=== PATIENT | female | born 1985 | race Caucasian/White ===

== ENCOUNTER 2017-11-20 16:40 | Emergency (ER) | payer MEDICAID, OTHER ==
[2017-11-20 17:01] VITALS: BP 125/83; PULSE 71; RESP 18; TEMP 97.7; O2SAT 99
[2017-11-20] MEDS ORDERED: Sodium Chloride 0.9% 1,000 ML IV STA (18:10)
--- NOTE | 2017-11-20 18:14 | ED PDOC ---
HPI: Abdomen Time Seen by Provider: 11/20/17 17:00 Chief Complaint (Nursing): Abdominal Pain Chief Complaint (Provider): Abdominal pain History Per: Patient History/Exam Limitations: no limitations Onset/Duration Of Symptoms: Hrs (this morning) Current Symptoms Are (Timing): Still Present Location Of Pain/Discomfort: Other (left sided) Quality Of Discomfort: "Pain" Associated Symptoms: Back Pain. denies: Fever, Chills, Nausea, Vomiting, Diarrhea, Urinary Symptoms (hematuria) Additional Complaint(s): Caty Mcnally is a 31 year old female, with no significant past medical history, who presents to the emergency department complaining of left sided abdominal pain that radiates to the back onset since this morning. Patient took ibuprofen today with no relief of symptoms. Last menstrual period was at the end of October. She denies any fever, chills, nausea, vomiting, diarrhea or hematuria. No further medical complaints. PMD: None provided. Last Menstral Period: End of October Past Medical History Reviewed: Historical Data, Nursing Documentation, Vital Signs Vital Signs: Last Vital Signs Temp 97.7 F 11/20/17 16:59 Pulse 71 11/20/17 16:59 Resp 18 11/20/17 16:59 BP 125/83 11/20/17 16:59 Pulse Ox 99 11/22/17 20:50 - Medical History PMH: No Chronic Diseases - Surgical History Surgical History: - Family History Family History: States: Unknown Family Hx - Social History Current smoker - smoking cessation education provided: Yes (light smoker <10 cigarettes daily) - Home Medications Home Medications: Ambulatory Orders Medication Instructions Recorded Vit#96/Ferrous Fum/FA 1 tab PO DAILY 02/05/15 [] Naproxen 1 tab PO BID PRN #14 tab 07/04/16 oxyCODONE/Acetaminophen [Percocet 1 ea PO Q6 PRN #15 tab 07/04/16 5/325 mg Tab] Naproxen [Naprosyn] 500 mg PO BID #30 tablet 11/21/17 - Allergies Allergies/Adverse Reactions: Allergies Allergy/AdvReac Type Severity Reaction Status Date / Time No Known Allergies Allergy Verified 11/20/17 16:59 Review of Systems ROS Statement: Except As Marked, All Systems Reviewed And Found Negative Constitutional: Negative for: Fever, Chills Gastrointestinal: Positive for: Abdominal Pain (left sided). Negative for: Nausea, Vomiting, Diarrhea Genitourinary Female: Negative for: Hematuria Musculoskeletal: Positive for: Back Pain Physical Exam - Reviewed Nursing Documentation Reviewed: Yes Vital Signs Reviewed: Yes - Physical Exam Appears: Positive for: Non-toxic Head Exam: Positive for: ATRAUMATIC, NORMAL INSPECTION, NORMOCEPHALIC Skin: Positive for: Normal Color, Warm, Dry Eye Exam: Positive for: Normal appearance, EOMI, PERRL Neck: Positive for: Painless ROM, Supple Cardiovascular/Chest: Positive for: Regular Rate, Rhythm. Negative for: Murmur Respiratory: Positive for: Normal Breath Sounds (clear b/l). Negative for: Respiratory Distress Gastrointestinal/Abdominal: Positive for: Tenderness (LLQ) Back: Positive for: Normal Inspection. Negative for: L CVA Tenderness, R CVA Tenderness, Vertebral Tenderness Extremity: Positive for: Normal ROM. Negative for: Tenderness, Deformity, Swelling Neurologic/Psych: Positive for: Alert, Oriented. Negative for: Motor/Sensory Deficits - Laboratory Results Result Diagrams: 11/20/17 20:50 11/20/17 19:22 - ECG O2 Sat by Pulse Oximetry: 99 (RA) Pulse Ox Interpretation: Normal Medical Decision Making Medical Decision Making: Initial Impression: Abdominal pain, rule out UTI rule out intraabdomianl pathology such as diverticulitis Initial Plan: --Abd & Pelvis w/o PO or IV Contrast [CT] --Beta-HCG, Quantitative --CMP --CBC w/ differential --Toradol 30 mg IV --Sodium Chloride 1,000 ml IV 999 mls/hr --Reevaluation 19:00 --Patient will be signed out to Dr. Coburn, pending CT. Scribe Attestation: Documented by Santos Pemberton, acting as a scribe for Sadia Cho MD Provider Scribe Attestation: All medical record entries made by the Scribe were at my direction and personally dictated by me. I have reviewed the chart and agree that the record accurately reflects my personal performance of the history, physical exam, medical decision making, and the department course for this patient. I have also personally directed, reviewed, and agree with the discharge instructions and disposition. Disposition - Clinical Impression Clinical Impression: Ovarian cyst - Patient ED Disposition Is Patient to be Admitted: Transfer of Care - Disposition [facility] Disposition: Transfer of Care Disposition Time: 17:00 Condition: STABLE Prescriptions: Naproxen [Naprosyn] 500 mg PO BID #30 tablet Instructions: Ovarian Cysts Forms: [employer] (Sinhala) Patient Signed Over To: Inder Coburn
--- NOTE | 2017-11-20 19:29 | ED PDOC ---
- Laboratory Results Result Diagrams: 11/20/17 20:50 11/20/17 19:22 - ECG O2 Sat by Pulse Oximetry: 99 (RA) Medical Decision Making Medical Decision Makin:00 --Patient was endorsed to me by Dr. Cho, pending CT and lab work. 19:50 Abdomen/Pelvis CT FINDINGS: Lower thorax: Heart size is normal. Lung bases are clear ABDOMEN: Liver: unremarkable Gallbladder and bile ducts: unremarkable Pancreas: unremarkable Spleen: unremarkable Adrenals: unremarkable Kidneys and ureters: unremarkable Stomach and bowel: Stomach is partially distended. Rotation is normal. There is no small bowel obstruction. Ileocecal region is unremarkable. Appendix and terminal ileum are unremarkable. Colon is incompletely distended which limits evaluation.There is diverticulosis. Appendix: See stomach and bowel PELVIS: Bladder: unremarkable Reproductive: Uterus and left adnexal structures are unremarkable. There is a 3 cm right adnexal/ovarian cyst. ABDOMEN and PELVIS: Intraperitoneal space: There is a small amount of free fluid in the pelvis.There is no free air. Bones/joints: There are no acute osseous abnormalities. Soft tissues: unremarkable Vasculature: Vascular structures are unremarkable. Lymph nodes: There is shotty adenopathy. IMPRESSION: No renal or ureteral stones or hydronephrosis; limited evaluation of renal parenchyma due to lack of intravenous contrast; no acute solid visceral or bowel abnormality; 3 cm right ovarian/adnexal cyst; small amount of free fluid in the pelvis, physiologic versus recent cyst rupture 2200 Pt. feeling better, results given, told to f/u w/ [employer] MACHINE OPERATOR. Pt. well appearing upon discharge, vitals improved. ADvised to f/u w/ HO[employer] MACHINE OPERATOR in 1- 2 days, return precautions discussed. Disposition - Clinical Impression Clinical Impression: Ovarian cyst - POA Present On Arrival: None - Disposition [facility] [[facility]] Disposition: Routine/Home Disposition Time: 20:40 Condition: STABLE Prescriptions: Naproxen [Naprosyn] 500 mg PO BID #30 tablet Instructions: Ovarian Cysts Forms: [employer] (Slovenian)
--- NOTE | 2017-11-20 19:50 | CT ---
EXAM: CT Abdomen and Pelvis Without Intravenous Contrast EXAM DATE/TIME: 11/20/2017 6:10 PM CLINICAL HISTORY: 31 years old, female; Pain; Abdominal pain; Localized; Left lower quadrant (llq); Prior surgery; Surgery date: 6+ months; Surgery type: ; Additional info: Left flank pain. TECHNIQUE: Axial computed tomography images of the abdomen and pelvis without intravenous contrast. All CT scans at this facility use one or more dose reduction techniques, viz.: automated exposure control; ma/kV adjustment per patient size (including targeted exams where dose is matched to indication; i.e. head); or iterative reconstruction technique. Coronal and sagittal reformatted images were created and reviewed. COMPARISON: There are no prior studies for comparison. FINDINGS: Lower thorax: Heart size is normal. Lung bases are clear ABDOMEN: Liver: unremarkable Gallbladder and bile ducts: unremarkable Pancreas: unremarkable Spleen: unremarkable Adrenals: unremarkable Kidneys and ureters: unremarkable Stomach and bowel: Stomach is partially distended. Rotation is normal. There is no small bowel obstruction. Ileocecal region is unremarkable. Appendix and terminal ileum are unremarkable. Colon is incompletely distended which limits evaluation.There is diverticulosis. Appendix: See stomach and bowel PELVIS: Bladder: unremarkable Reproductive: Uterus and left adnexal structures are unremarkable. There is a 3 cm right adnexal/ovarian cyst. ABDOMEN and PELVIS: Intraperitoneal space: There is a small amount of free fluid in the pelvis.There is no free air. Bones/joints: There are no acute osseous abnormalities. Soft tissues: unremarkable Vasculature: Vascular structures are unremarkable. Lymph nodes: There is shotty adenopathy. IMPRESSION: No renal or ureteral stones or hydronephrosis; limited evaluation of renal parenchyma due to lack of intravenous contrast; no acute solid visceral or bowel abnormality; 3 cm right ovarian/adnexal cyst; small amount of free fluid in the pelvis, physiologic versus recent cyst rupture
[2017-11-20] MEDS ORDERED: Morphine 4 MG/ML VIAL IVP STA (20:14)
[2017-11-20 20:31] LABS: ALB/GLOB RATIO 1.2 (1.0-2.1); ALBUMIN 4.2 g/dL (3.5-5.0); ALT/SGPT 29 U/L (9-52); AST/SGOT 28 U/L (14-36); BLOOD UREA NITROGEN 14 mg/dl (7-17); CALCIUM 8.9 mg/dL (8.4-10.2); GFR AFRICAN-AMERICAN > 60; GFR NON-AFRICAN AMERICAN > 60
[2017-11-20] MEDS ORDERED: Morphine 4 MG/ML VIAL ONE (20:35)
[2017-11-20 20:57] LABS: BASO # 0.1 K/uL (0.0-0.2); BASO % 0.6 % (0.0-2.0); EOS % 0.1 % (0.0-4.0); HEMOGLOBIN 14.1 g/dL (12.0-16.0); LYMPH # 1.4 K/uL (1.0-4.3); LYMPH % 15.1 % (20.0-40.0); MEAN CELL VOLUME 93.2 fl (81.0-99.0); MEAN CORPUSCULAR HEMOGLOBIN 31.6 pg (27.0-31.0); MEAN CORPUSCULAR HGB CONC 33.9 g/dL (33.0-37.0); MEAN PLATELET VOLUME 7.2 fl (7.2-11.7); MONO # 0.5 K/uL (0.0-0.8); MONO % 5.2 % (0.0-10.0); NEUT # 7.3 K/uL (1.8-7.0); NRBC % 0.1 % (0.0-0.0); RBC 4.47 Mil/uL (3.80-5.20); RED CELL DISTRIBUTION WIDTH 12.5 % (11.5-14.5); WHITE BLOOD COUNT 9.3 K/uL (4.8-10.8)
--- NOTE | 2017-11-21 13:37 | US ---
HISTORY: LLQ/pelvic LMP 10/31/2017 COMPARISON: None available. TECHNIQUE: Transvaginal FINDINGS: UTERUS: Measures 8.4 x 5.5 x 3.4 cm. Normal in size. The uterus is retroverted to slightly retroflexed. No fibroid or other mass lesion seen. ENDOMETRIUM: Measures 7 mm in diameter. Unremarkable. CERVIX: No cervical abnormality identified. RIGHT OVARY: Measures 3.3 x 2.6 x 2 .6 cm. No solid mass. Normal flow. 2.3 x 1.6 x 1.5 cm inferred corpus luteal cyst crenated LEFT OVARY: Measures 2.4 x 2.2 x 1.5 cm cm. No solid mass. Normal flow. FREE FLUID: No significant free fluid noted. OTHER FINDINGS: None. IMPRESSION: Right the corpus luteal cyst -. Otherwise unremarkable
== END 2017-11-21 00:41 | disposition home or self-care (01) ==
LOC: H.ER 16:40
DX: M54.9 Dorsalgia, unspecified (principal); N83.209 Unspecified ovarian cyst, unspecified side; F17.210 Nicotine dependence, cigarettes, uncomplicated; Z98.890 Other specified postprocedural states
CPT/HCPCS: 74176; 76830; 80053; 81025; 84702; 85025; 96374; 96375; 96376; 99283; J1885; J2270; J2405; J7040

== ENCOUNTER 2018-03-09 04:54 | Emergency (ER) | payer OTHER ==
[2018-03-09 05:18] VITALS: RESP 16; TEMP 97.9
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
[2018-03-09 07:17] VITALS: BP 120/72; PULSE 89
[2018-03-09 20:28] VITALS: O2SAT 97
== END 2018-03-09 07:00 | disposition home or self-care (01) ==
LOC: H.ER 04:54
DX: S01.419A Laceration without foreign body of unspecified cheek and temporomandibular area, initial encounter (principal); S01.512A Laceration without foreign body of oral cavity, initial encounter; Y04.2XXA Assault by strike against or bumped into by another person, initial encounter

== ENCOUNTER 2019-01-28 18:10 | Emergency (ER) | payer OTHER ==
[2019-01-28 18:41] VITALS: RESP 18
--- NOTE | 2019-01-28 20:45 | ED PDOC ---
HPI: Abdomen Time Seen by Provider: 01/28/19 18:45 Chief Complaint (Nursing): Abdominal Pain Chief Complaint (Provider): abdominal pain History Per: Patient History/Exam Limitations: no limitations Onset/Duration Of Symptoms: Days (4) Current Symptoms Are (Timing): Still Present Location Of Pain/Discomfort: LLQ (radiating down to leg) Quality Of Discomfort: Aching Associated Symptoms: Urinary Symptoms. denies: Fever, Chills, Nausea, Vomiting, Diarrhea Exacerbating Factors: Movement Alleviating Factors: None Past Medical History Reviewed: Historical Data, Nursing Documentation, Vital Signs Vital Signs: Last Vital Signs Temp 98.4 F 01/28/19 18:38 Pulse 91 H 01/28/19 18:38 Resp 18 01/28/19 18:38 BP 131/88 01/28/19 18:38 Pulse Ox 100 01/28/19 18:38 Primary Care Provider: Tejas Dominguez - Medical History PMH: No Chronic Diseases - Surgical History Surgical History: - Family History Family History: States: Unknown Family Hx - Social History Current smoker - smoking cessation education provided: No - Immunization History Hx Tetanus Toxoid Vaccination: No Hx Influenza Vaccination: No Hx Pneumococcal Vaccination: No - Home Medications Home Medications: Ambulatory Orders Medication Instructions Recorded Vits96/Iron Fum/Folic 1 tab PO DAILY 02/05/15 [] Naproxen 1 tab PO BID PRN #14 tab 07/04/16 oxyCODONE/Acetaminophen [Percocet 1 ea PO Q6 PRN #15 tab 07/04/16 5/325 mg Tab] Naproxen [Naprosyn] 500 mg PO BID #30 tablet 11/21/17 Chlorhexidine 0.12% [Peridex] 10 ml PO TID #1 bottle 03/09/18 Docusate Sodium [Dulcolax Stool 100 mg PO DAILY #12 capsule 01/29/19 Softener] Ibuprofen [Motrin Tab] 600 mg PO Q6 #30 tab 01/29/19 - Allergies Allergies/Adverse Reactions: Allergies Allergy/AdvReac Type Severity Reaction Status Date / Time No Known Allergies Allergy Verified 01/28/19 18:37 Review of Systems ROS Statement: Except As Marked, All Systems Reviewed And Found Negative (and as per HPI) Gastrointestinal: Positive for: Abdominal Pain. Negative for: Nausea, Melena, Hematochezia, Hematemesis Genitourinary Female: Positive for: Dysuria, Vaginal Discharge (1 month white cheesy). Negative for: Frequency Physical Exam - Reviewed Nursing Documentation Reviewed: Yes Vital Signs Reviewed: Yes - Physical Exam Appears: Positive for: Non-toxic, No Acute Distress Head Exam: Positive for: ATRAUMATIC, NORMOCEPHALIC Skin: Positive for: Warm, Dry Eye Exam: Positive for: EOMI, PERRL ENT: Negative for: Pharyngeal Erythema, Tonsillar Exudate Neck: Positive for: Painless ROM, Supple Cardiovascular/Chest: Positive for: Regular Rate, Rhythm. Negative for: Murmur Respiratory: Positive for: Normal Breath Sounds. Negative for: Respiratory Distress Gastrointestinal/Abdominal: Positive for: Soft, Tenderness (LLQ/pelvic). Negative for: Mass, Distended, Guarding, Rebound Pelvic Exam: Positive for: External Exam Normal, Speculum Exam Normal, No Cerv. Motion Tender. Negative for: Discharge Back: Positive for: Normal Inspection. Negative for: L CVA Tenderness, R CVA Tenderness Extremity: Positive for: Normal ROM. Negative for: Deformity Lymphatic: Negative for: Adenopathy Neurological/Psych: Positive for: Awake, Alert. Negative for: Motor/Sensory Deficits - Laboratory Results Result Diagrams: 01/28/19 20:46 01/28/19 20:46 - ECG O2 Sat by Pulse Oximetry: 100 Medical Decision Making Medical Decision Makin:36 Pelvic US Findings Uterus Measures 12.3 x 3.3 x 4.4 cm. Normal in size and appearance. No fibroid or other mass lesion seen. Endometrium Measures 6 mm in diameter. Unremarkable. Right ovary Measures 4.6 x 1.9 x 2.4 cm. No solid mass. Normal flow. Cyst measures 1.7 x 1.8 x 1.7 cm. Left ovary Measures 2.5 x 2.4 x 3.1 cm. No solid mass. Normal flow. Free fluid Trace free fluid noted. Other Findings None. Impression 1. Trace free fluid in the cul-de-sac. 2. Right ovarian cyst. 23:[address] Coburn pending CT, re-evaluation and final disposition. Disposition - Clinical Impression Clinical Impression: Ovarian cyst, Diverticulosis, Constipation - Patient ED Disposition Is Patient to be Admitted: Transfer of Care - Disposition Referrals: Tejas Dominguez MD [Primary Care Provider] - Disposition: Transfer of Care Disposition Time: 23:00 Condition: STABLE Prescriptions: Docusate Sodium [Dulcolax Stool Softener] 100 mg PO DAILY #12 capsule Ibuprofen [Motrin Tab] 600 mg PO Q6 #30 tab Instructions: Ovarian Cysts, Constipation in Adults, Diverticulosis Forms: [employer] (Slovenian) Patient Signed Over To: Inder Coburn
[2019-01-28 20:50] LABS: BASO # 0.1 K/uL (0.0-0.2); EOS # 0.1 K/uL (0.0-0.7); EOS % 1.8 % (0.0-4.0); HEMOGLOBIN 13.1 g/dL (12.0-16.0); LYMPH # 2.7 K/uL (1.0-4.3); LYMPH % 34.1 % (20.0-40.0); MEAN CELL VOLUME 91.5 fl (81.0-99.0); MEAN CORPUSCULAR HGB CONC 33.9 g/dL (33.0-37.0); MEAN PLATELET VOLUME 7.3 fl (7.2-11.7); MONO # 0.5 K/uL (0.0-0.8); MONO % 5.9 % (0.0-10.0); NEUT # 4.4 K/uL (1.8-7.0); NEUT % 57.2 % (50.0-75.0); NRBC % 0.1 % (0.0-0.0); RBC 4.22 Mil/uL (3.80-5.20); RED CELL DISTRIBUTION WIDTH 13.1 % (11.5-14.5); WHITE BLOOD COUNT 7.8 K/uL (4.8-10.8)
[2019-01-28 21:00] LABS: ALB/GLOB RATIO 1.3 (1.0-2.1); ALBUMIN 4.3 g/dL (3.5-5.0); ALT/SGPT 32 U/L (9-52); AST/SGOT 30 U/L (14-36); BLOOD UREA NITROGEN 9 mg/dl (7-17); GFR NON-AFRICAN AMERICAN > 60
[2019-01-28] MEDS ORDERED: Iohexol 240 (50 ml) PO STA (21:53)
[2019-01-28] MEDS ORDERED: Iohexol 240 (50 ml) ONE (22:21)
--- NOTE | 2019-01-28 23:28 | ED PDOC ---
- Laboratory Results Result Diagrams: 01/28/19 20:46 01/28/19 20:46 Lab Results: Total Bilirubin 0.3 mg/dl (0.2-1.3) 01/28/19 20:46 AST 30 U/L (14-36) 01/28/19 20:46 ALT 32 U/L (9-52) 01/28/19 20:46 Alkaline Phosphatase 79 U/L (38-126) 01/28/19 20:46 Total Protein 7.5 G/DL (6.3-8.2) 01/28/19 20:46 Albumin 4.3 g/dL (3.5-5.0) 01/28/19 20:46 Globulin 3.3 gm/dL (2.2-3.9) 01/28/19 20:46 Albumin/Globulin Ratio 1.3 (1.0-2.1) 01/28/19 20:46 - ECG O2 Sat by Pulse Oximetry: 100 (RA) Pulse Ox Interpretation: Normal Medical Decision Making Medical Decision Makin:00 Patient endorsed to this provider by Dr. Richey pending CT, re-evaluation and final disposition. 01:03 CT FINDINGS: LUNG BASES: The lung bases appear clear. No pleural effusions are seen. LIVER: There is mild diffuse fatty infiltration of liver. GALLBLADDER AND BILE DUCTS: Gallbladder is decompressed. PANCREAS: Unremarkable. SPLEEN: Unremarkable. ADRENAL GLANDS: Unremarkable. KIDNEYS, URETERS, AND BLADDER: The kidneys appear within normal limits. There is no hydronephrosis or hydroureter. No urinary calculi are seen. STOMACH AND BOWEL: Mild sigmoid diverticulosis without convincing evidence for acute diverticulitis. There is constipation in the colon. APPENDIX: Normal appendix. PERITONEUM: No free fluid. No free air. LYMPH NODES: No lymphadenopathy is evident. REPRODUCTIVE: 2.3 cm right ovarian cyst. Questionable 3.2 cm solid left adnexal lesion, although this was not identified on the ultrasound from earlier the same day. This finding was not appreciable on the 2018 CT. Consider correlation with pelvic MRI or short-term imaging in approximately 2 months. VASCULATURE: No evidence of abdominal aortic aneurysm. BONES: No aggressive appearing osseous lesion. No acute osseous pathology evident. IMPRESSION: 1. There is mild diffuse fatty infiltration of liver. 2. 2.3 cm right ovarian cyst. This correlate with the findings on ultrasound from earlier the same day. 3. Questionable 3.2 cm solid left adnexal lesion, although this was not identified on the ultrasound from earlier the same day. This finding was not appreciable on the 2018 CT. Consider correlation with pelvic MRI or short-term imaging in approximately 2 months. 4. Mild sigmoid diverticulosis without convincing evidence for acute diverticulitis. 5. There is constipation in the colon. 01:13 Patient reports improvement of symptoms. She was advised that she should discuss with Dr. Dominguez CT findings once final reading is available. Patient appears well upon discharge. Scribe Attestation: Documented by Aida Antoine, acting as a scribe Carly Coburn MD Provider Scribe Attestation: All medical record entries made by the Scribe were at my direction and personally dictated by me. I have reviewed the chart and agree that the record accurately reflects my personal performance of the history, physical exam, medical decision making, and the department course for this patient. I have also personally directed, reviewed, and agree with the discharge instructions and disposition. Disposition - Clinical Impression Clinical Impression: Ovarian cyst, Diverticulosis, Constipation - POA Present On Arrival: None - Disposition Referrals: Tejas Dominguez MD [Primary Care Provider] - Disposition: Routine/Home Disposition Time: :13 Condition: IMPROVED Prescriptions: Docusate Sodium [Dulcolax Stool Softener] 100 mg PO DAILY #12 capsule Ibuprofen [Motrin Tab] 600 mg PO Q6 #30 tab Instructions: Ovarian Cysts, Constipation in Adults, Diverticulosis Forms: [employer] (Citizen Of [place])
[2019-01-28] MEDS ORDERED: Iohexol 300 100 ML IJ ONE (23:51)
[2019-01-28] MEDS ORDERED: Sodium Chloride 0.9% 50 ML IV ONE (23:51)
[2019-01-29] MEDS ORDERED: Fluconazole 150 MG TAB PO STA (01:27)
[2019-01-29] MEDS ORDERED: Fluconazole 150 MG TAB PO ONE (01:31)
[2019-01-29 01:44] VITALS: BP 133/79; PULSE 77; TEMP 98.6
[2019-01-29 03:28] VITALS: O2SAT 100
--- NOTE | 2019-01-29 11:30 | CT ---
Date of service: 01/28/2019 PROCEDURE: CT Abdomen and Pelvis with contrast HISTORY: LLQ pain COMPARISON: 11/20/2017. TECHNIQUE: CT scan of the abdomen and pelvis was performed after administration of intravenous contrast. Oral contrast was administered. Coronal and sagittal reformatted images were obtained. Contrast dose: 90 mL Omnipaque 300 Radiation dose: Total exam DLP = 582.95 mGy-cm. This CT exam was performed using one or more of the following dose reduction techniques: Automated exposure control, adjustment of the mA and/or kV according to patient size, and/or use of iterative reconstruction technique. FINDINGS: LOWER THORAX: The visualized lungs are clear. LIVER: Normal in size with homogeneous enhancement. Diffuse fatty liver. No gross lesion or ductal dilatation. GALLBLADDER AND BILE DUCTS: Well distended. No calcified gallstones, wall thickening or pericholecystic fluid. PANCREAS: Normal in size with homogeneous enhancement. No gross lesion or ductal dilatation. SPLEEN: Normal in size and appearance. ADRENALS: No discrete nodule. KIDNEYS AND URETERS: Normal in size with homogeneous enhancement. No hydronephrosis. No solid mass. VASCULATURE: No aortic aneurysm. There are no aortic atherosclerotic calcifications or mural plaque present. BOWEL: Evaluation of the bowel is limited in the absence of oral contrast. The small bowel loops are normal in caliber. The colon is grossly normal in appearance. No bowel wall thickening or obstruction. APPENDIX: Normal appendix. PERITONEUM: No free fluid. No free air. LYMPH NODES: No enlarged lymph nodes. BLADDER: Well distended and normal in appearance. REPRODUCTIVE: The uterus is normal in size. There is a 2.3 x 2.1 cm simple cyst in the right ovary and 2.7 x 3.1 cm low-attenuation lesion in the left ovary, with attenuation values higher than simple fluid.. BONES: No acute fracture. Within normal limits for the patient's age. OTHER FINDINGS: None. IMPRESSION: No acute abdominal or pelvic abnormality. 3.1 cm indeterminate cystic lesion in the left ovary could represent complicated or hemorrhagic cyst. Short-term follow-up with pelvic ultrasound is recommended for further characterization. A preliminary report was provided by [email or web address]. The final report is tagged to the PA review folder.
--- NOTE | 2019-01-29 13:23 | US ---
Date of service: 01/28/2019 HISTORY: L pelvic pain h/o cyst COMPARISON: 11/20/2017. TECHNIQUE: Transabdominal pelvic ultrasound was performed. FINDINGS: UTERUS: Measures 12.3 x 3.3 x 4.4 cm. Anteverted, normal in size and appearance. No fibroid or other mass lesion seen. ENDOMETRIUM: Measures 6.0 mm in diameter. Normal in appearance. CERVIX: No cervical abnormality identified. RIGHT OVARY: Measures 4.6 x 1.9 x 2.4 cm. No solid mass. Normal flow. There is a 1.7 x 1.8 x 1.7 cm simple cyst. LEFT OVARY: Measures 2.5 x 2.4 x 3.1 cm. No solid mass. Normal flow. FREE FLUID: There is trace free fluid in the cul de sac, likely physiologic. OTHER FINDINGS: None. IMPRESSION: 1.8 cm simple cyst in the right ovary. If there is a persistent clinical concern for left pelvic pain, transvaginal ultrasound would be helpful for further evaluation. Trace free fluid in the cul de sac, likely physiologic. A preliminary report was provided by [facility]. The final report is tagged to the [facility] review folder.
== END 2019-01-29 01:43 | disposition home or self-care (01) ==
LOC: H.ER 18:10
DX: N83.201 Unspecified ovarian cyst, right side (principal); K57.30 Diverticulosis of large intestine without perforation or abscess without bleeding; K59.00 Constipation, unspecified; Z79.899 Other long term (current) drug therapy
CPT/HCPCS: 74177; 76856; 80053; 81025; 85025; 87491; 87591; 99284; Q9966; Q9967